=== PATIENT | female | born 1970 | race Caucasian/White ===

== ENCOUNTER 2017-09-04 20:49 | Emergency (ER) | payer MEDICAID ==
[2017-09-04] MEDS ORDERED: Sodium Chloride 0.9% 1,000 ML IV STA (23:13)
--- NOTE | 2017-09-04 23:21 | ED PDOC ---
HPI: Abdomen Time Seen by Provider: 09/04/17 22:54 Chief Complaint (Nursing): Abdominal Pain Chief Complaint (Provider): Abdominal pain History Per: Patient History/Exam Limitations: no limitations Onset/Duration Of Symptoms: Hrs (12) Additional Complaint(s): Pt reports lower abdominal pain since 11 AM today, constant. Went to [facility] ED, had blood work taken and drank contrast but CT scan was not working so left and came to [facility]. Denies fever, nausea, vomiting, constipation, diarrhea, vaginal bleeding, dysuria, hematuria. Past Medical History Reviewed: Nursing Documentation, Vital Signs Vital Signs: Last Vital Signs Temp 98.5 F 09/04/17 20:57 Pulse 61 09/04/17 20:57 Resp 18 09/04/17 20:57 BP 167/103 H 09/04/17 20:57 Pulse Ox 100 09/04/17 23:22 - Medical History PMH: No Chronic Diseases - Surgical History Other surgeries: Umbilical hernia repair - Family History Family History: States: Unknown Family Hx - Living Arrangements Living Arrangements: With Family - Social History Current smoker - smoking cessation education provided: No Alcohol: None - Allergies Allergies/Adverse Reactions: Allergies Allergy/AdvReac Type Severity Reaction Status Date / Time No Known Allergies Allergy Verified 09/04/17 20:57 Review of Systems Constitutional: Negative for: Fever, Chills Cardiovascular: Negative for: Chest Pain, Palpitations Respiratory: Negative for: Cough, Shortness of Breath Gastrointestinal: Positive for: Abdominal Pain. Negative for: Nausea, Vomiting , Diarrhea, Hematemesis Genitourinary Female: Negative for: Dysuria, Hematuria, Vaginal Discharge, Vaginal Bleeding Musculoskeletal: Negative for: Back Pain Skin: Negative for: Rash, Lesions Neurological: Negative for: Headache, Dizziness Physical Exam - Reviewed Nursing Documentation Reviewed: Yes Vital Signs Reviewed: Yes - Physical Exam Appears: Positive for: Well, No Acute Distress Skin: Positive for: Normal Color, Warm, Dry Eye Exam: Positive for: Normal appearance, EOMI, PERRL Cardiovascular/Chest: Positive for: Regular Rate, Rhythm Respiratory: Positive for: Normal Breath Sounds Gastrointestinal/Abdominal: Positive for: Bowel Sounds, Soft, Tenderness (BLQ). Negative for: Distended, Guarding, Rebound Back: Positive for: Normal Inspection. Negative for: L CVA Tenderness, R CVA Tenderness Extremity: Positive for: Normal ROM Neurologic/Psych: Positive for: Alert, Oriented - ECG O2 Sat by Pulse Oximetry: 100 Medical Decision Making Medical Decision Makin yo female with abdominal pain. - labs - EKG - CT abd/pelvis - pelvic ultrasound - IVF - Morphine Time: 0000 -- Patient endorsed to Dr. Matthew, pending labs, CT, and US. Scribe Attestation: Documented by Anthony He acting as a scribe for Dr. Stephanie Iyer MD. Provider Scribe Attestation: All medical record entries made by the Scribe were at my direction and personally dictated by me. I have reviewed the chart and agree that the record accurately reflects my personal performance of the history, physical exam, medical decision making, and the department course for this patient. I have also personally directed, reviewed, and agree with the discharge instructions and disposition. Disposition - Disposition Forms: [employer] ([employer])
--- NOTE | 2017-09-05 00:03 | ED PDOC ---
- Laboratory Results Result Diagrams: 09/04/17 00:29 09/04/17 23:59 - ECG O2 Sat by Pulse Oximetry: 100 (RA) Pulse Ox Interpretation: Normal - Progress Re-evaluation Time: 04:00 Condition: Re-examined, Improved Medical Decision Making Medical Decision Making: Time: 0000 -- Patient endorsed to me by Dr. Iyer, pending lab, CT, and US. Time: 0105 US PELVIS RESULTS FINDINGS: Uterus/cervix: Uterus measures 15.5 x 6.0 x 9.6 cm in size. Two uterine masses, larger measuring 6.9 x 7.1 x 5.6 cm and located within fundus. Endometrium: 0.4 cm in thickness. Right ovary: No mass. Normal flow. Left ovary: Not visualized. Free fluid: No significant free fluid. IMPRESSION: 1. Probable fibroid uterus. 2. Incidental/non-acute findings are described above. Thank you for allowing us to participate in the care of your patient. Dictated and Authenticated by: Kenny Funes MD 09/05/2017 1:05 AM Eastern Time ([place] & [place]) Time: 226 CT ABD/PELVIS RESULTS FINDINGS: Lung bases: Bibasilar nonspecific infiltrates are present, consistent with atelectasis or pneumonia. Mediastinum: Possible small hiatal hernia. ABDOMEN: Liver: Enlarged fatty liver. Gallbladder and bile ducts: Unremarkable. No ductal dilation. Pancreas: Unremarkable. No mass. No ductal dilation. Spleen: Unremarkable. No splenomegaly. Adrenals: Unremarkable. No mass. Kidneys and ureters: Unremarkable. No solid mass. No hydronephrosis. Stomach and bowel: Diverticulosis. Nonspecific gastric thickening likely due to under distention. Correlation with clinical data is recommended if gastritis is suspected. PELVIS: Appendix: Normal caliber appendix with intraluminal contrast. borderline thickening of appendiceal tip may measuring 7 mm. No surrounding inflammation. Bladder: Partially decompressed bladder with bladder wall thickening. Correlation with urinalysis is recommended only if clinical cystitis is suspected. Reproductive: Enlarged fibroid uterus. There is fluid versus thickening of the endocervical canal endometrial stripe. This is not mentioned on the recent ultrasound and correlation with [employer] evaluation is recommended. ABDOMEN and PELVIS: Intraperitoneal space: Unremarkable. No free air. No significant fluid collection. Bones/joints: No acute fracture. No dislocation. Soft tissues: Unremarkable. Vasculature: Suprapubic varices. The aorta is normal in caliber and there are no az-aortic collections. No abdominal aortic aneurysm. Lymph nodes: Bilateral inguinal lymph nodes. IMPRESSION: No acute findings. Thank you for allowing us to participate in the care of your patient. Dictated and Authenticated by: Meliza Kelley MD 09/05/2017 2:27 AM Eastern Time ([place] & [place]) Scribe Attestation: Documented by Anthony He acting as a scribe for Dr. Janis Matthew MD. Provider Scribe Attestation: All medical record entries made by the Scribe were at my direction and personally dictated by me. I have reviewed the chart and agree that the record accurately reflects my personal performance of the history, physical exam, medical decision making, and the department course for this patient. I have also personally directed, reviewed, and agree with the discharge instructions and disposition. Disposition Doctor Will See Patient In The: Office Counseled Patient/Family Regarding: Studies Performed, Diagnosis - Clinical Impression Clinical Impression: Abdominal pain - POA Present On Arrival: None - Disposition Referrals: Vivian Hall MD [Family Provider] - Disposition: Routine/Home Disposition Time: 04:00 Condition: GOOD Additional Instructions: Take motrin for pain. Follow up with your PCP in 2-3 days. Instructions: Acute Abdomen (Belly Pain), Adult (DC)
[2017-09-05 00:35] LABS: BASO % 0.3 % (0.0-2.0); EOS # 0.1 K/uL (0.0-0.7); EOS % 0.8 % (0.0-4.0); HEMOGLOBIN 13.5 g/dL (12.0-16.0); LYMPH # 1.9 K/uL (1.0-4.3); LYMPH % 26.4 % (20.0-40.0); MEAN CELL VOLUME 91.3 fl (81.0-99.0); MEAN CORPUSCULAR HGB CONC 33.9 g/dL (33.0-37.0); MEAN PLATELET VOLUME 8.4 fl (7.2-11.7); MONO # 0.5 K/uL (0.0-0.8); NEUT # 4.8 K/uL (1.8-7.0); NEUT % 65.5 % (50.0-75.0); RBC 4.36 Mil/uL (3.80-5.20); RED CELL DISTRIBUTION WIDTH 13.3 % (11.5-14.5); WHITE BLOOD COUNT 7.3 K/uL (4.8-10.8)
[2017-09-05 01:06] LABS: ALB/GLOB RATIO 1.2 (1.0-2.1); ALT/SGPT 37 U/L (9-52); AST/SGOT 45 U/L (14-36); BLOOD UREA NITROGEN 6 mg/dl (7-17); CALCIUM 8.8 mg/dL (8.4-10.2); GFR AFRICAN-AMERICAN > 60; GFR NON-AFRICAN AMERICAN > 60
[2017-09-05 01:18] LABS: INR 1.1 (0.9-1.2); PARTIAL THROMBOPLASTIN TIME 30.5 Seconds (25.6-37.1); PROTHROMBIN TIME 11.9 Seconds (9.8-13.1)
[2017-09-05] MEDS ORDERED: Iohexol 300 100 ML IJ ONE (01:26)
[2017-09-05 01:44] LABS: SQUAMOUS EPITHIAL 7 /hpf (0-5); URINE BILIRUBIN NEGATIVE (NEGATIVE); URINE BLOOD NEGATIVE (NEGATIVE); URINE CLARITY SLIGHTY-CLOUDY (Clear); URINE GLUCOSE (UA) NEG (Normal); URINE LEUKOCYTE ESTERASE TRACE Leu/uL (Negative); URINE PROTEIN NEGATIVE (NEGATIVE); URINE UROBILINOGEN 0.2-1.0 mg/dL (0.2-1.0)
[2017-09-05 01:57] LABS: URINE COLOR LIGHT YELLOW (YELLOW)
[2017-09-05] MEDS ORDERED: Potassium Chloride 20 mEq ER Tab PO ONE ×2 (02:31→04:09)
[2017-09-05 04:29] VITALS: BP 131/73; PULSE 62; RESP 16; TEMP 97.8
--- NOTE | 2017-09-05 09:57 | US ---
HISTORY: BLQ pain COMPARISON: None available. TECHNIQUE: Grayscale, color Doppler and spectral evaluation the pelvis performed transabdominally and transvaginally FINDINGS: UTERUS: Measures 15.5 x 6.0 cm cm. Normal in size and appearance. Fundal fibroid measuring 7.1 x 6.9 x 5.5 cm. Posterior subserosal fibroid measuring 3.6 x 4.8 x 4.7 cm. ENDOMETRIUM: Measures 4 mm in diameter. Unremarkable. CERVIX: No cervical abnormality identified. RIGHT OVARY: Measures 3.1 x 2.2 x 1.9 cm. No solid mass. Normal flow. LEFT OVARY: Not visualized. FREE FLUID: No significant free fluid noted. OTHER FINDINGS: None. IMPRESSION: Stable leiomyomas as described above, largest measuring up to 7.1 cm in the fundus.
--- NOTE | 2017-09-05 10:48 | CT ---
PROCEDURE: CT Abdomen and Pelvis with contrast HISTORY: BLQ pain COMPARISON: None. TECHNIQUE: Contrast dose: 95 mL Omnipaque 300 Radiation dose: Total exam DLP = 310.5 mGy-cm. This CT exam was performed using one or more of the following dose reduction techniques: Automated exposure control, adjustment of the mA and/or kV according to patient size, and/or use of iterative reconstruction technique. FINDINGS: LOWER THORAX: Mild bilateral lower lobe atelectasis. LIVER: Hepatic steatosis. No gross lesion or ductal dilatation. GALLBLADDER AND BILE DUCTS: Unremarkable. PANCREAS: Unremarkable. No gross lesion or ductal dilatation. SPLEEN: Unremarkable. ADRENALS: Unremarkable. No mass. KIDNEYS AND URETERS: Unremarkable. No hydronephrosis. No solid mass. VASCULATURE: Unremarkable. No aortic aneurysm. BOWEL: Unremarkable. No obstruction. No gross mural thickening. APPENDIX: Normal appendix with borderline thickening of the appendiceal tip. PERITONEUM: Unremarkable. No free fluid. No free air. LYMPH NODES: Unremarkable. No enlarged lymph nodes. BLADDER: Unremarkable. REPRODUCTIVE: Multi fibroid uterus. Prominent left-sided pelvic vasculature with 8 mm left gonadal vein. BONES: No acute fracture. OTHER FINDINGS: None. IMPRESSION: Normal caliber appendix with borderline thickening of the appendiceal tip. Clinical correlation is recommended. Multi fibroid uterus. Prominent left-sided pelvic vasculature with 8 mm left gonadal vein. Additional findings as above.
[2017-09-05 20:20] VITALS: O2SAT 100
--- NOTE | 2017-09-07 10:16 | CARD ---
APPROVED REPORT EKG Measurement Heart [id number] <Conclusion> Sinus bradycardia T wave abnormality, consider anterior ischemia Abnormal ECG
== END 2017-09-05 04:29 | disposition home or self-care (01) ==
LOC: H.ER 20:49
DX: D25.9 Leiomyoma of uterus, unspecified (principal); R10.30 Lower abdominal pain, unspecified
CPT/HCPCS: 74177; 76856; 80053; 81003; 81025; 85025; 85610; 85730; 99284; J2270; J7030; Q9967